=== PATIENT | female | born 1940 | race Caucasian/White ===

== ENCOUNTER 2022-10-15 14:52 | Emergency (ER) | payer MEDICARE, MEDICAID ==
[~2022-10-15] VITALS: Ht 157.5 cm; Wt 63.6 kg
[~2022-10-15 14:52] MED LIST: ASCO500T28 PO; BENA10TA74 PO; CETI10TA15 PO; DABI150C PO; DILT360C32 PO; FENO160T PO; FERR325T35 PO; FLUT16SP2 BOTHNARES; FURO-150 PO; METF-516 PO; PANT-47 PO; POTA8TAB46 PO
[2022-10-15 15:45] LABS: BASOPHILS % (AUTO) 0.7 % (0-1); EOSINOPHILS % (AUTO) 0.2 % (0-6); HEMATOCRIT 30.4 % (35.0-45.0); HEMOGLOBIN 10.2 g/dl (12.0-16.0); LYMPHOCYTES # (AUTO) 1.1 X10'3 (1.1-4.8); LYMPHOCYTES % (AUTO) 17.1 % (21-51); MEAN CORPUSCULAR HEMOGLOBIN 33.4 PG (27.0-31.0); MEAN CORPUSCULAR HGB CONC 33.5 g/dL (33.0-36.5); MEAN CORPUSCULAR VOLUME 99.6 FL (78-98); MEAN PLATELET VOLUME 6.2 FL (7.4-10.4); MONOCYTES # (AUTO) 0.5 X10'3 (0-0.9); NEUTROPHILS # (AUTO) 4.9 X10'3 (1.8-7.7); PLATELET COUNT 405 X10'3 (140-440); RED BLOOD COUNT 3.06 X10'6 (4.20-5.60); RED CELL DISTRIBUTION WIDTH 14.8 % (11.5-14.5); WHITE BLOOD COUNT 6.5 X10'3 (4.5-11.0)
[2022-10-15 15:55] LABS: APTT 35 SECONDS (22-32)
[2022-10-15 16:04] LABS: ALANINE AMINOTRANSFERASE 18 U/L (12-78); ALBUMIN 3.4 G/DL (3.4-5.0); ALBUMIN/GLOBULIN RATIO 1.1 (1.1-1.5); ALKALINE PHOSPHATASE 50 IU/L (46-116); ANION GAP 8 (8-16); ASPARTATE AMINO TRANSFERASE 37 U/L (10-37); BILIRUBIN,TOTAL 1.3 MG/DL (0.1-1.0); BLOOD UREA NITROGEN 12 MG/DL (7-18); BUN/CREATININE RATIO 16.9 (6.6-38.0); CALCIUM 9.1 MG/DL (8.5-10.1); CHLORIDE 98 MMOL/L (99-107); CREATININE 0.71 MG/DL (0.40-0.90); GLUCOSE 115 MG/DL (70-104); MAGNESIUM 1.6 MG/DL (1.5-2.4); POTASSIUM 3.5 MMOL/L (3.5-5.1); SODIUM 134 MMOL/L (135-145); TOTAL CARBON DIOXIDE 28.2 MMOL/L (24-32); TOTAL PROTEIN 6.6 G/DL (6.4-8.2); eGFR 78 ML/MIN
[2022-10-15 16:16] VITALS: BP 149/63
[2022-10-15] MEDS ORDERED: furosemide 10 MG/1 ML 10ml inj IV ONE (16:30)
[2022-10-15] MEDS ORDERED: POTASSIUM BICARB 20meq eff tab 20 MEQ TABLET.EFF PO STA (17:08)
[2022-10-15] MEDS ORDERED: FURO40TA4 PO (17:18)
[2022-10-16] MEDS ORDERED: DABI150C PO (15:14)
[2022-10-16] MEDS ORDERED: FENO160T PO (15:14)
[2022-10-16] MEDS ORDERED: FERR325T29 PO (15:14)
[2022-10-16] MEDS ORDERED: HYDR-3968 PO (15:14)
[2022-10-16] MEDS ORDERED: BENA10TA75 PO (15:14)
[2022-10-16] MEDS ORDERED: PANT20TA18 PO (15:14)
[2022-10-16] MEDS ORDERED: FURO-149 PO (15:14)
[2022-10-16] MEDS ORDERED: METF-1203 PO (15:14)
[2022-10-16] MEDS ORDERED: POTA8TAB69 PO (15:14)
[2022-10-16] MEDS ORDERED: DILT360C32 PO (15:14)
== END 2022-10-15 18:23 | disposition home or self-care (01) ==
LOC: ER 14:53
DX: I50.9 Heart failure, unspecified (principal); E78.00 Pure hypercholesterolemia, unspecified; I10 Essential (primary) hypertension; K21.9 Gastro-esophageal reflux disease without esophagitis; E11.9 Type 2 diabetes mellitus without complications; Z90.49 Acquired absence of other specified parts of digestive tract; Z88.8 Allergy status to other drugs, medicaments and biological substances
CPT/HCPCS: 36415; 71045; 80053; 83735; 83880; 84484; 85025; 85610; 85730; 87502; 87503; 87635; 93005; C9803; J1940

== ENCOUNTER 2024-07-15 06:00 | Day surgery (SDC) | payer MEDICARE, MEDICAID ==
[~2024-07-15] VITALS: Ht 157.5 cm; Wt 61.7 kg
[2024-07-15] VITALS (16 sets, daily range): BP systolic 113–144; BP diastolic 57–82; PULSE 58–107; RESP 10–20; TEMP 99; O2SAT 91–100
[~2024-07-15 06:00] MED LIST changes: +ACET-1015 PO; +ASCO100031 PO; -ASCO500T28 PO; -BENA10TA74 PO; +BENA10TA75 PO; -CETI10TA15 PO; +DILT360C25 PO; -DILT360C32 PO; +FERR325T29 PO; -FERR325T35 PO; -FLUT16SP2 BOTHNARES; +FLUT9.9S BOTHNARES; +FURO-149 PO; -FURO-150 PO; +HYDR-3968 PO; +LATA2.5D14 EACHEYE; +METF-1203 PO; -METF-516 PO; -PANT-47 PO; -POTA8TAB46 PO; +POTA8TAB69 PO
[2024-07-15] MEDS: ringers solution, lacted 1,000 ML IV SCH (07:14)
[2024-07-15] MEDS: famotidine 20mg tablet PO ONE (07:14)
[2024-07-15] MEDS: ceFAZolin 2gm in dextrose, iso 50 ML IV ONE (07:15)
[2024-07-15] MEDS: tranexamic acid 1gm/0.7% sal. 100 ML IV ONE (07:15)
[2024-07-15] MEDS ORDERED: cocaine 4% topical solution 4ml bottle ONE (07:16)
[2024-07-15] MEDS ORDERED: methylPREDNISolone acetate 80mg/ml inj**IM only ONE (07:16)
[2024-07-15] MEDS ORDERED: epiNEPHrine 1 mg/ml 30ml MDV ONE (07:16)
[2024-07-15] MEDS ORDERED: LIDOcaine 1% w/EPI 1:100,000 inj. MDV 50 ML VIAL ONE (07:17)
[2024-07-15] MEDS ORDERED: mupirocin 2% ointment 22GM ONE ×4 (07:17→08:24)
[2024-07-15] MEDS ORDERED: oxymetazoline 15 ML nasal spray NS ONE (07:18)
[2024-07-15] MEDS ORDERED: Thrombin (Bovine) 5,000 unit vial TP ONE (07:18)
[2024-07-15] MEDS: oxymetazoline 15 ML nasal spray NS ONE (07:26)
[2024-07-15] MEDS ORDERED: fentaNYL/PF 50MCG/1 ML 2ML syringe ONE (08:12)
[2024-07-15] MEDS ORDERED: midazolam 1 mg/ML 2ml injection ONE (08:13)
[2024-07-15] MEDS ORDERED: propofol inj 20 ML IV ONE (08:17)
[2024-07-15] MEDS ORDERED: bacitracin 15gm ointment TP ONE ×2 (08:22→08:24)
[2024-07-15] MEDS ORDERED: sevoflurane 250ml liquid IH ONE (08:32)
[2024-07-15] MEDS ORDERED: dexamethasone sod phosphate 4mg/ml inj. ONE (08:46)
[2024-07-15] MEDS ORDERED: morphine 4 MG/ML inj SYRINge IV PRN (09:20)
[2024-07-15] MEDS ORDERED: morphine 2 MG/ML inj. syringe IV PRN (09:20)
[2024-07-15] MEDS ORDERED: proCHLORperazine 10 MG/2 ml inj IV PRN (09:20)
[2024-07-15] MEDS ORDERED: ondansetron/PF 4mg/2ml inj IV PRN (09:20)
[2024-07-15] MEDS ORDERED: labetalol 20mg/4ml (5mg/ml) syringe IV PRN (09:20)
[2024-07-15] MEDS ORDERED: meperidine/PF 25mg/ml syringe IV PRN ×3 (09:20)
[2024-07-15] MEDS ORDERED: ringers solution, lacted 1,000 ML IV SCH (09:20)
[2024-07-15] MEDS ORDERED: ondansetron/PF 4mg/2ml inj ONE (09:37)
[2024-07-15] MEDS: acetaminophen 1,000mg/100ml IV 100 ML IV STA (10:54)
[2024-07-15] MEDS: salt irrigation nasal spray 45 ML SPRAY NS PRN (10:55)
[2024-07-15] MEDS: mupirocin 2% nasal ointment 1gm UD NS STA (10:57)
[2024-07-15] MEDS ORDERED: oxymetazoline 15 ML nasal spray NS SCH (11:00)
[2024-07-15] MEDS ORDERED: mupirocin 2% nasal ointment 1gm UD NS SCH (20:00)
== END 2024-07-15 12:26 | disposition home or self-care (01) ==
LOC: PAS 06:00
PROVIDERS: ATTEND Otolaryngology
DX: J34.2 Deviated nasal septum (principal); J34.3 Hypertrophy of nasal turbinates; J32.9 Chronic sinusitis, unspecified; I10 Essential (primary) hypertension; E11.9 Type 2 diabetes mellitus without complications; I48.91 Unspecified atrial fibrillation; K21.9 Gastro-esophageal reflux disease without esophagitis; G47.33 Obstructive sleep apnea (adult) (pediatric); M19.90 Unspecified osteoarthritis, unspecified site; Z86.718 Personal history of other venous thrombosis and embolism; Z79.84 Long term (current) use of oral hypoglycemic drugs; Z79.891 Long term (current) use of opiate analgesic; Z79.899 Other long term (current) drug therapy; Z90.49 Acquired absence of other specified parts of digestive tract; Z90.710 Acquired absence of both cervix and uterus; Z96.611 Presence of right artificial shoulder joint; Z96.612 Presence of left artificial shoulder joint; Z96.641 Presence of right artificial hip joint; Z96.653 Presence of artificial knee joint, bilateral; Z98.41 Cataract extraction status, right eye; Z98.42 Cataract extraction status, left eye
CPT/HCPCS: 30140; 30520; 31254; 31267; 61782; 82948; 93005; A4618; A6402; A7000; J0131; J0171; J0690; J1100; J2250; J2405; J2704; J3010; J3490; J7030; J7040; J7120; Z7506; Z7508; Z7512; Z7610; J1010